=== PATIENT | female | born 1985 | race Caucasian/White ===

== ENCOUNTER → 2018-10-22 | Outpatient (CLI) | payer OTHER ==
--- NOTE | 2018-10-22 12:44 | CT ---
EXAMINATION TYPE: CT chest wo con DATE OF EXAM: 10/22/2018 COMPARISON: None HISTORY: 33-year-old female atypical chest pain TECHNIQUE: Contiguous axial scanning of the chest without IV contrast. Coronal and sagittal reconstru ctions performed. CT DLP: 535 mGycm Automated exposure control for dose reduction was used. FINDINGS: There is a large 2.9 x 3.0 cm hypodense nodule of the thyroid isthmus which warrants further ultrasou nd evaluation. Heart normal size without pericardial effusion. Aorta normal caliber with conventional arch vessel branching anatomy. No thoracic lymphadenopathy allowing for noncontrast technique. No consolidation or pleural effusion. Tiny hiatal hernia. Visualized upper abdomen shows no gross abnormality. Bones: Mild multilevel degenerative disc disease especially in the mid thoracic spine. IMPRESSION: 1. LARGE 3.0 CM NODULE OF THE THYROID ISTHMUS WHICH WARRANTS FURTHER ULTRASOUND EVALUATION AND POSSIB LE FNA DEPENDING ON ULTRASOUND FINDINGS. 2. TINY HIATAL HERNIA. 3. NO ACUTE PULMONARY PROCESS.
== END | disposition home or self-care (01) ==
LOC: MERGE 11:20 → RADCTMAIN 11:25
PROVIDERS: ATTEND Internal Medicine
DX: K44.9 Diaphragmatic hernia without obstruction or gangrene (principal); J45.909 Unspecified asthma, uncomplicated; R07.89 Other chest pain
CPT/HCPCS: 71250

== ENCOUNTER → 2018-11-05 | Outpatient (CLI) | payer OTHER ==
--- NOTE | 2018-11-06 07:23 | US ---
EXAMINATION TYPE: US thyroid st tissue head/neck DATE OF EXAM: 11/05/2018 COMPARISON: CT 2019 CLINICAL HISTORY: E04.1 Thyroid nodule,E03.9 Hypothyroidism. Thyroid nodule seen on CT, no previous u ltrasound, used to be on thyroid meds- not anymore GLAND SIZE: Right Lobe: 4.1 x 1.6 x 1.8 cm Overall Parenchyma: homogenous Left Lobe: 3.6 x 1.6 x 1.4 cm Overall Parenchyma: homogeneous Isthmus Thickness: 0.7 cm NODULES RIGHT: # of nodules measured on right: 0 LEFT: # of nodules measured on left: 1 1. 1.3 X 1.3 x 0.9 cm hypoechoic nodule at the lower medial/isthmus pole with well-defined margins. This nodule is wider than tall and shows intranodular vascularity. Prior size: no previous ISTHMUS: # of nodules measured in the isthmus: 1 1. 3.4 X 3.2 x 2.3 cm hypoechoic heterogenous nodule at the lower pole with well-defined margins. This nodule is wider than tall and shows intranodular vascularity. Prior size: No previous Bilateral neck scanned, no evidence of lymphadenopathy. IMPRESSION: 3.4 cm isthmic nodule for which fine-needle aspiration could be considered given the size of the nodu le. Additional solid left thyroid nodule is seen that does not yet meet criteria for fine-needle aspi ration.
== END | disposition home or self-care (01) ==
LOC: RADUSWWP 15:59
PROVIDERS: ATTEND Internal Medicine
DX: E04.2 Nontoxic multinodular goiter (principal); E03.9 Hypothyroidism, unspecified
CPT/HCPCS: 76536

== ENCOUNTER → 2018-12-26 | Outpatient (CLI) | payer OTHER ==
--- NOTE | 2018-12-26 12:49 | CONS ---
CONSULTATION DATE OF SERVICE: 12/26/2018 A 33-year-old lady who has been evaluated in [facility] for symptoms of significant excessive daytime sleepiness. HISTORY OF PRESENT ILLNESS/SLEEP-WAKE EVALUATION: Feel sleepiness since May of 2017 when she delivered her fourth baby. She also had a preeclampsia at that time and also preeclampsia. Presently, her sleep schedule from 10 p.m. to 5 a.m. No problems with falling asleep. No TV in bedroom. She usually sleeps on the side position. According to the family, she does not snore. Sometimes while falling asleep, she started to see dreams right away. She wakes up from sleep 2 times with nocturia. In the morning, she wakes up tired, has difficulties to pay attention. Shafter Sleepiness Scale is 8, but she does not have a chance to take any naps because she is very busy, she has 4 children. If she is able to take naps. She is seeing vivid dreams during naps. No history of sleep paralysis, but as I mentioned above, possible positive history of hypnagogic hallucinations. In the morning, she wakes up tired, has difficulties to pay attention, has problems with irritability. PAST MEDICAL HISTORY: Positive for fibromyalgia, iron deficiency anemia, vitamin D deficiency, hypertension, pre and preeclampsia, thyroid nodules, numbness in her [place] fingers. 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 History of asthma. PAST SURGICAL HISTORY: Adenoidectomy, appendectomy, D and C and ablation of the uterus in 2018. MEDICATIONS: Amlodipine, vitamin D3, ferrous sulfate, magnesium. FAMILY HISTORY: Hypertension father maladjustment findings thyroid problems. REVIEW OF SYSTEMS: Awakenings from sleep, sleepiness during the day, possible hypnagogic hallucinations and vivid dreams during naps. SOCIAL HISTORY: Negative for smoking or using alcohol. PHYSICAL EXAM: lady without distress BP 127/83, HR 78, RR 16, height 5, 4, weight 233.2, body mass index 40.5, temperature 98.3, oxygen saturation at room air 99%. OROPHARYNX: Practically normal position of soft palate, Mallampati 2, but thick tonsils. Some restriction of nasal breathing on the left side. ABDOMEN: Obese, numbness of the fingers and toes. Slight pain while touching thyroid. THYROID: Painful during assessment. Neck Supple, no JVD. Thyroid is not palpable. LUNGS Clear to percussion and to auscultation. Good air exchange. No wheezing or rhonchi. HEART S1, S2 regular. No murmurs, gallops, or rubs. EXTREMITIES No clubbing or cyanosis. PLANNING FEEDER: Awake, alert, and oriented X3. Cranial nerves 2 to 7 intact. There is no fasciculation or atrophy. noted. No focal deficits observed. IMPRESSION: 1. Sleepiness for about 1-1/2 years, started after her last delivery. Possible hypnagogic hallucinations, vivid dreams during naps. Differential diagnosis should include hypersomnia including narcolepsy. 2. Increase size of the tonsils. Differential diagnosis should include obstructive sleep apnea, but patient does not have a history of snoring, although awakenings from sleep several times. 3. Hypertension. 4. Obesity, body mass index 40.5. 5. Thyroid nodules. 6. 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 7. History of fibromyalgia. 8. History of numbness in the fingers and toys. 9. History of preeclampsia including preeclampsia. 10.History of vitamin D deficiency. 11.History of iron deficiency anemia. 12.Status post D and C and uterus ablation in 2018. 13.Status post adenoidectomy. 14.Status post appendectomy. 15.Thyroid nodules. 16.History of asthma. PLAN: 1. Polysomnography for evaluation of patient's breathing during sleep. 2. CPAP/BiPAP titration if sleep study confirms obstructive sleep apnea-hypopnea syndrome. 3. Preferable position during sleep on the side. 4. No driving if patient feels any sleepiness. 5. Multiple sleep latency test for objective evaluation of excessive daytime sleepiness. The differential diagnosis of narcolepsy. 6. I will see patient for follow up visit to explain results of testing and following plan. Than you very much for referring this patient for consultation. Sincerely, Fito Bradshaw MD, PhD, FAASM Diplomat of [employer] [facility] [place] MMODL / FRANK: [phone] /
== END | disposition home or self-care (01) ==
LOC: SLEEP 10:04
PROVIDERS: ATTEND Internal Medicine
DX: G47.10 Hypersomnia, unspecified (principal); I10 Essential (primary) hypertension; E04.2 Nontoxic multinodular goiter; E66.9 Obesity, unspecified; Z68.41 Body mass index [BMI] 40.0-44.9, adult; Z86.69 Personal history of other diseases of the nervous system and sense organs; Z87.39 Personal history of other diseases of the musculoskeletal system and connective tissue; Z86.39 Personal history of other endocrine, nutritional and metabolic disease; Z86.2 Personal history of diseases of the blood and blood-forming organs and certain disorders involving the immune mechanism; Z87.09 Personal history of other diseases of the respiratory system; Z90.49 Acquired absence of other specified parts of digestive tract; Z90.09 Acquired absence of other part of head and neck; Z98.890 Other specified postprocedural states
CPT/HCPCS: 99211

== ENCOUNTER → 2019-04-03 | Outpatient (CLI) | payer OTHER ==
[2019-04-03 15:59] LABS: Folate, Serum 23.1 ng/mL
[2019-04-03 18:03] LABS: C Reactive Protein 1.3 mg/dL (0.0-0.8)
== END | disposition home or self-care (01) ==
LOC: LABWHC1 08:25
PROVIDERS: ATTEND Family Medicine
DX: R53.83 Other fatigue (principal); R60.9 Edema, unspecified
CPT/HCPCS: 36415; 82533; 82607; 82746; 84425; 86140; 86431

== ENCOUNTER → 2019-07-03 | Outpatient (CLI) | payer OTHER ==
--- NOTE | 2019-07-03 10:16 | FL ---
EXAMINATION TYPE: FL barium swallow DATE OF EXAM: 07/03/2019 CLINICAL HISTORY: History of thyroid disease with dysphasia. Feeling of something in throat for 6 mon ths per patient. Choking and hoarseness. TECHNIQUE: A double contrast esophagram is performed utilizing air and barium. A total of 31 second s of fluoroscopic time was utilized during procedure. 58 spot images are saved. COMPARISON: None FINDINGS: The esophagus shows satisfactory motility and emptying into the stomach. Small size sliding -type hiatal hernia is seen best towards end of study. No diverticulum or stricture. No significant g astroesophageal reflux was seen during real time performance of this study. IMPRESSION: Small sliding-type hiatal hernia. No obstructing mass or stricture noted.
== END | disposition home or self-care (01) ==
LOC: RADUSWWP 09:03
PROVIDERS: ATTEND Otolaryngology Plastic Surgery within the Head & Neck
DX: K44.9 Diaphragmatic hernia without obstruction or gangrene (principal)
CPT/HCPCS: 74220

== ENCOUNTER → 2019-07-05 | Outpatient (CLI) | payer OTHER ==
--- NOTE | 2019-07-05 09:46 | CT ---
EXAMINATION TYPE: CT soft tissue neck w con DATE OF EXAM: 07/05/2019 COMPARISON: None HISTORY: Dysphagia, Multinodular goiter CT DLP: 634 mGycm CONTRAST: CT scan of the neck is performed with IV Contrast, patient injected with 100 ml mL of Isovue 300. Contrast enhanced CT of the neck was performed from the skull base through the lung apices. AIRWAY: The supraglottic, glottic, and subglottic portions of the airway appear patent and free of mass. SALIVARY GLANDS: The submandibular and parotid glands are free of mass or inflammatory process. THYROID GLAND: The right thyroid lobe measures 4 cm in craniocaudal dimension while on the left measu res 4.6 cm. Arising from the thyroid isthmus is a large predominantly solid nodule measuring 3.6 x 3 .3 x 2.5 cm. Small subcentimeter nodule upper pole left thyroid lobe. No additional nodules seen with certainty. LYMPH NODES: No adenopathy seen greater than 1cm. LUNG APICES: No nodule or mass is seen. OTHER: Vascular structures are patent. No significant degenerative change of the cervical spine. N o abscess seen. IMPRESSION: Solid nonspecific nodule arising from the thyroid isthmus. Otherwise unremarkable study.
== END | disposition home or self-care (01) ==
LOC: RADCTMAIN 06:57
PROVIDERS: ATTEND Otolaryngology Plastic Surgery within the Head & Neck
DX: E04.1 Nontoxic single thyroid nodule (principal)
CPT/HCPCS: 70491; Q9967

== ENCOUNTER → 2019-10-31 | Outpatient (CLI) | payer OTHER ==
--- NOTE | 2019-11-01 06:41 | US ---
EXAMINATION TYPE: US thyroid st tissue head/neck DATE OF EXAM: 10/31/2019 COMPARISON: Prior thyroid ultrasound November 05, 2018 CLINICAL HISTORY: C73 Thyroid cancer, Z90.09History of partial thyroidectomy. History of thyroid canc er, left thyroidectomy 09/15 GLAND SIZE: Right Lobe: 3.9 x 1.9 x 1.5 cm Overall Parenchyma: homogenous Left Lobe: Surgically absent Isthmus Thickness: Surgically absent NODULES RIGHT: # of nodules measured on right: 0 LEFT: surgically absent ISTHMUS: surgically absent Bilateral neck scanned, no evidence of lymphadenopathy. Post surgical changes noted Stable somewhat small homogeneous right thyroid lobe or remnant. No suspicious new nodules. No suspic ious recurrent left-sided tissue. No suspicious adenopathy on images saved. IMPRESSION: As above. No significant interval change from prior.
== END | disposition home or self-care (01) ==
LOC: RADUSWWP 15:55
PROVIDERS: ATTEND Pediatrics Adolescent Medicine
DX: C73 Malignant neoplasm of thyroid gland (principal); Z90.09 Acquired absence of other part of head and neck
CPT/HCPCS: 76536

== ENCOUNTER → 2020-02-26 | Outpatient (CLI) | payer OTHER | END | disposition home or self-care (01) | LOC: LABWHC1 08:35 | PROVIDERS: ATTEND Internal Medicine | DX: E89.0 Postprocedural hypothyroidism (principal) | CPT/HCPCS: 36415; 84439; 84443 ==

== ENCOUNTER → 2020-08-04 | Outpatient (CLI) | payer OTHER ==
[2020-08-05 04:39] LABS: T4, Free (Free Thyroxine) 1.2 ng/dL (0.80-1.80)
== END | disposition home or self-care (01) ==
LOC: LABWHC1 15:13
PROVIDERS: ATTEND Internal Medicine
DX: E89.0 Postprocedural hypothyroidism (principal)
CPT/HCPCS: 36415; 84439; 84443

== ENCOUNTER → 2020-08-23 | Outpatient (CLI) | payer OTHER ==
[2020-08-23 11:22] LABS: Basophils % (A) 0 %; Eosinophils % (A) 0 %; HCT 43.1 % (34.0-46.0); HGB 13.8 gm/dL (11.4-16.0); Lymphocytes % (A) 15 %; MCH 26.7 pg (25.0-35.0); MCHC 32.1 g/dL (31.0-37.0); MCV 83.1 fL (80.0-100.0); Mean Platelet Volume 8.2; Monocytes # (A) 0.5 k/uL (0-1.0); Monocytes % (A) 4 %; Neutrophils # (A) 10.5 k/uL (1.3-7.7); Neutrophils % (A) 80 %; Platelet Count 247 k/uL (150-450); RBC 5.19 m/uL (3.80-5.40); RDW 13.3 % (11.5-15.5); WBC 13.3 k/uL (3.8-10.6)
[2020-08-23 16:49] LABS: African American GFR (CKD) 135.9 (60.0-200.0); Albumin/Globulin Ratio 1.92 (1.60-3.17); Anion Gap 9.5 mmol/L (4.00-12.00); BUN/Creat Ratio 16.67 Ratio (12.00-20.00); C Reactive Protein 0.7 mg/dL (0.0-0.8); Calcium 9.6 mg/dL (8.7-10.3); Carbon Dioxide 25.5 mmol/L (21.6-31.8); Globulin 2.6 g/dL (1.6-3.3); Non-African American GFR(CKD) 117.3 (60.0-200.0); Potassium 4.2 mmol/L (3.5-5.5); Total Bilirubin 0.5 mg/dL (0.3-1.2); Total Protein 7.6 g/dL (6.2-8.2)
== END | disposition home or self-care (01) ==
LOC: LABWHC1 10:33
PROVIDERS: ATTEND Family Medicine
DX: E03.9 Hypothyroidism, unspecified (principal); R10.13 Epigastric pain; R10.12 Left upper quadrant pain
CPT/HCPCS: 36415; 80053; 84443; 85025; 86140

== ENCOUNTER → 2020-10-15 | Outpatient (CLI) | payer OTHER ==
[2020-10-16 00:37] LABS: Alpha Fetoprotein, Tumor Mkr <2.5 ng/mL (0.0-7.9)
[2020-10-16 16:32] LABS: Hepatitis B Surface Antigen Non-Reactive (Non-Reactive); Hepatitis C IgG Antibody Non-Reactive (Non-Reactive)
== END | disposition home or self-care (01) ==
LOC: LABWHC1 15:12
PROVIDERS: ATTEND Nurse Practitioner
DX: R93.2 Abnormal findings on diagnostic imaging of liver and biliary tract (principal)
CPT/HCPCS: 36415; 82105; 86803; 87340

== ENCOUNTER → 2020-11-01 | Outpatient (CLI) | payer OTHER ==
--- NOTE | 2020-11-01 11:26 | MR ---
EXAMINATION TYPE: MR liver wo/w con DATE OF EXAM: 11/01/2020 COMPARISON: Outside CT August 24, 2020 and older study here June 27, 2017. HISTORY: Abdominal pain, abnormal findings on recent CT. CONTRAST: Standard multiplanar, multisequence MRI departmental protocol utilizing 10 mL intravenous Gadavist ga dolinium contrast. Images performed of the abdomen focusing on the liver. FINDINGS: Liver: Liver remains normal in size. There is capsular retraction in the inferior right hepatic lobe redemonstrated corresponding to slight T1 hypointense and slight T2 hyperintense 2.5 cm lesion jimenez l image 25.Dynamic postcontrast imaging shows lesion to have initial no or delayed enhancement remain ing rest of liver, there is eventual heterogeneous peripheral increased enhancement relative to remai nder of the liver with central rounded area of nonenhancement. Lesion likely was present June 27, 2017 CT where was isodense relative to remainder of liver as this was a later injection than outside CT. Punctate calcification noted on CT. Remainder of the liver shows no concerning additional solid o r cystic mass. No surrounding ascites. Gallbladder remains unremarkable. Other: Lung bases are clear. The spleen and both adrenal glands along with pancreas remain within nor mal limits. No concerning renal mass or hydronephrosis. No suspicious small or large bowel dilatation . Visualized osseous structures are intact. IMPRESSION: There is 2.5 cm lesion confirmed in the inferior inferior aspect posterior segment right hepatic lobe. Subtle adjacent capsular retraction redemonstrated. Lesion likely stable in size from N 2016 study. There is progressive peripheral enhancement on more delayed phase images. I schwarz spect a benign atypical hemangioma as most likely etiology. Imaging characteristics not consistent wi th FNH or hepatic adenoma. Advise repeat liver protocol MRI in 1-2 years time to document stability a nd reassess.
== END | disposition home or self-care (01) ==
LOC: RADMRIMAIN 09:11
PROVIDERS: ATTEND Internal Medicine Gastroenterology
DX: K76.89 Other specified diseases of liver (principal); R93.2 Abnormal findings on diagnostic imaging of liver and biliary tract
CPT/HCPCS: 74183; A9585

== ENCOUNTER 2021-03-17 02:09 | Emergency (ER) | payer OTHER ==
[2021-03-17 02:25] VITALS: RESP 18; TEMP 99.9
[2021-03-17] MEDS ORDERED: MORPHINE SULFATE 4 MG/ML SYRINGE IV STA (02:29)
[2021-03-17] MEDS ORDERED: SODIUM CHLORIDE 0.9% 1,000 ML IV STA ×2 (02:29)
--- NOTE | 2021-03-17 02:30 | ED ---
Abdominal Pain HPI - General Chief Complaint: Abdominal Pain Stated Complaint: Abdominal pain Time Seen by Provider: 03/17/21 02:13 Source: patient, RN notes reviewed, old records reviewed Mode of arrival: ambulatory Limitations: no limitations - History of Present Illness Initial Comments: This is a 36-year-old female presents today for evaluation. Patient presents with concerns. Concerns for abdominal pain that started this afternoon as well as just overall feelings of rundown chills sweats. She has no significant travel history, she does have severe history of possible liver cancer or other cancer. Patient is unsure of the extent of those issues. Patient states one mass that she has maybe had her liver and that is what she is concerned about today. She has no nausea no vomiting no fevers, no other complaints MD Complaint: abdominal pain -: hour(s), year(s) Location: RUQ Radiation: RUQ Migration to: no migration, RUQ Severity: moderate Severity scale (1-10): 5 Quality: cramping, stabbing Consistency: intermittent Improves With: nothing Worsens With: nothing Associated Symptoms: nausea Treatments Prior to Arrival: NSAIDs - Related Data Home Medications Medication Instructions Recorded Confirmed Labetalol [Trandate] 100 mg PO BID 10/10/17 01/29/18 Cholecalciferol (Vitamin D3) 2,000 unit PO QAM 01/11/18 01/29/18 [Vitamin D3] hydroCHLOROthiazide 12.5 tab-cap PO DAILY 01/11/18 01/29/18 Budesonide [Pulmicort Flexhaler] 2 puff INHALATION DAILY 01/23/18 01/29/18 Ferrous Sulfate [Iron] 325 mg PO DAILY 01/23/18 01/29/18 Allergies Allergy/AdvReac Type Severity Reaction Status Date / Time latex Allergy Severe Dyspnea Verified 03/17/21 02:25 nitrofurantoin Allergy Rash/Hives Verified 03/17/21 02:25 [From Macrobid] nitrofurantoin Allergy Rash/Hives Verified 03/17/21 02:25 macrocrystalline [From Macrobid] propoxyphene Allergy Rash/Hives Verified 03/17/21 02:25 [From Darvocet-N] Review of Systems ROS Statement: Those systems with pertinent positive or pertinent negative responses have been documented in the HPI. ROS Other: All systems not noted in ROS Statement are negative. Past Medical History Past Medical History: Asthma, GERD/Reflux, Hypertension, Thyroid Disorder Additional Past Medical History / Comment(s): STATES HAD POST PRE-ECLAMPSIA, PAST HX ASTHMA AND THYROID underactive , STATES HAVING POSSIBLE GALLBLADDER AND LIVER ISSUES. HAS RT FRONTAL LOBE LESION, FREQUENT HEADACHES. Pt. states left eye vision loss after uncontrolled blood pressure caused retina to tear, Polycystic Ovarian Syndrome History of Any Multi-Drug Resistant Organisms: None Reported Past Surgical History: Adenoidectomy, Appendectomy, Uterine Ablation Additional Past Surgical History / Comment(s): LAPROSCOPIC SX Past Anesthesia/Blood Transfusion Reactions: Previous Problems w/ Anesthesia Additional Past Anesthesia/Blood Transfusion Reaction / Comment(s): N/V after 09/2017 uterine ablation. No blood transfusion to date Past Psychological History: No Psychological Hx Reported Smoking Status: Never smoker Past Alcohol Use History: Rare Past Drug Use History: None Reported - Past Family History Mother Family Medical History: Cancer Additional Family Medical History / Comment(s): SKIN CA General Exam Limitations: no limitations General appearance: alert, in no apparent distress Head exam: Present: atraumatic, normocephalic, normal inspection Eye exam: Present: normal appearance, PERRL, EOMI. Absent: scleral icterus, conjunctival injection, periorbital swelling ENT exam: Present: normal exam, mucous membranes moist Neck exam: Present: normal inspection. Absent: tenderness, meningismus, lymphadenopathy Respiratory exam: Present: normal lung sounds bilaterally. Absent: respiratory distress, wheezes, rales, rhonchi, stridor Cardiovascular Exam: Present: regular rate, normal rhythm, normal heart sounds. Absent: systolic murmur, diastolic murmur, rubs, gallop, clicks GI/Abdominal exam: Present: soft, normal bowel sounds. Absent: distended, tenderness, guarding, rebound, rigid Extremities exam: Present: normal inspection, full ROM, normal capillary refill. Absent: tenderness, pedal edema, joint swelling, calf tenderness Back exam: Present: normal inspection Neurological exam: Present: alert, oriented X3, CN II-XII intact Psychiatric exam: Present: normal affect, normal mood Skin exam: Present: warm, dry, intact, normal color. Absent: rash Course Vital Signs 03/17/21 03/17/21 03/17/21 02:24 02:25 04:30 Temperature 99.9 F H Pulse Rate 89 88 70 Respiratory 18 18 18 Rate Blood Pressure 135/87 120/80 127/77 O2 Sat by Pulse 96 98 98 Oximetry - Reevaluation(s) Reevaluation #1: 03/17/21 05:00 Medical record is reviewed Reevaluation #2: 03/17/21 05:00 Patient informed results and questions answered Patient is reassured on the benign status of her liver lesion Reevaluation #3: 03/17/21 05:00 patient feels good for discharge home with pain is resolved Medical Decision Making - Medical Decision Making 36 female DF for evaluation of abdominal pain recurrent abdominal pain. Patient is in good spirits and health currently. Patient feels good for discharge home - Lab Data Result diagrams: 03/17/21 02:39 03/17/21 02:39 Lab Results 03/17/21 03/17/21 03/17/21 Range/Units 02:39 02:39 02:39 WBC 5.7 (3.8-10.6) k/uL RBC 4.72 (3.80-5.40) m/uL Hgb 13.4 (11.4-16.0) gm/dL Hct 41.5 (34.0-46.0) % MCV 88.0 (80.0-100.0) fL MCH 28.4 (25.0-35.0) pg MCHC 32.3 (31.0-37.0) g/dL RDW 13.3 (11.5-15.5) % Plt Count 160 (150-450) k/uL MPV 8.5 Neutrophils % 88 % Lymphocytes % 7 % Monocytes % 3 % Eosinophils % 1 % Basophils % 0 % Neutrophils # 5.0 (1.3-7.7) k/uL Lymphocytes # 0.4 L (1.0-4.8) k/uL Monocytes # 0.2 (0-1.0) k/uL Eosinophils # 0.1 (0-0.7) k/uL Basophils # 0.0 (0-0.2) k/uL Sodium 137 (137-145) mmol/L Potassium 4.4 (3.5-5.1) mmol/L Chloride 105 (98-107) mmol/L Carbon Dioxide 24 (22-30) mmol/L Anion Gap 8 mmol/L BUN 9 (7-17) mg/dL Creatinine 0.58 (0.52-1.04) mg/dL Est GFR (CKD-EPI)AfAm >90 (>60 ml/min/1.73 sqM) Est GFR (CKD-EPI)NonAf >90 (>60 ml/min/1.73 sqM) Glucose 129 H (74-99) mg/dL Plasma Lactic Acid Bernard (0.7-2.0) mmol/L Calcium 8.9 (8.4-10.2) mg/dL Total Bilirubin 1.1 (0.2-1.3) mg/dL AST 17 (14-36) U/L ALT 10 (4-34) U/L Alkaline Phosphatase 71 (38-126) U/L C-Reactive Protein (<1.0) mg/dL Total Protein 6.7 (6.3-8.2) g/dL Albumin 4.2 (3.5-5.0) g/dL Amylase 34 (30-110) U/L Lipase 42 (23-300) U/L Urine Color Light Yellow Urine Appearance Clear (Clear) Urine pH 7.5 (5.0-8.0) Ur Specific Gruver 1.007 (1.001-1.035) Urine Protein Negative (Negative) Urine Glucose (UA) Negative (Negative) Urine Ketones Negative (Negative) Urine Blood Negative (Negative) Urine Nitrite Negative (Negative) Urine Bilirubin Negative (Negative) Urine Urobilinogen <2.0 (<2.0) mg/dL Ur Leukocyte Esterase Negative (Negative) 03/17/21 03/17/21 Range/Units 02:39 02:39 WBC (3.8-10.6) k/uL RBC (3.80-5.40) m/uL Hgb (11.4-16.0) gm/dL Hct (34.0-46.0) % MCV (80.0-100.0) fL MCH (25.0-35.0) pg MCHC (31.0-37.0) g/dL RDW (11.5-15.5) % Plt Count (150-450) k/uL MPV Neutrophils % % Lymphocytes % % Monocytes % % Eosinophils % % Basophils % % Neutrophils # (1.3-7.7) k/uL Lymphocytes # (1.0-4.8) k/uL Monocytes # (0-1.0) k/uL Eosinophils # (0-0.7) k/uL Basophils # (0-0.2) k/uL Sodium (137-145) mmol/L Potassium (3.5-5.1) mmol/L Chloride (98-107) mmol/L Carbon Dioxide (22-30) mmol/L Anion Gap mmol/L BUN (7-17) mg/dL Creatinine (0.52-1.04) mg/dL Est GFR (CKD-EPI)AfAm (>60 ml/min/1.73 sqM) Est GFR (CKD-EPI)NonAf (>60 ml/min/1.73 sqM) Glucose (74-99) mg/dL Plasma Lactic Acid Bernard 0.9 (0.7-2.0) mmol/L Calcium (8.4-10.2) mg/dL Total Bilirubin (0.2-1.3) mg/dL AST (14-36) U/L ALT (4-34) U/L Alkaline Phosphatase (38-126) U/L C-Reactive Protein 1.7 H (<1.0) mg/dL Total Protein (6.3-8.2) g/dL Albumin (3.5-5.0) g/dL Amylase (30-110) U/L Lipase (23-300) U/L Urine Color Urine Appearance (Clear) Urine pH (5.0-8.0) Ur Specific Gruver (1.001-1.035) Urine Protein (Negative) Urine Glucose (UA) (Negative) Urine Ketones (Negative) Urine Blood (Negative) Urine Nitrite (Negative) Urine Bilirubin (Negative) Urine Urobilinogen (<2.0) mg/dL Ur Leukocyte Esterase (Negative) - Radiology Data Radiology results: report reviewed (CT head and pelvis is negative for acute disease patient does have a liver hemangioma which appears to be had multiple prior studies same size), image reviewed Disposition Clinical Impression: Abdominal pain, Liver hemangioma Disposition: HOME SELF-CARE Condition: Good Instructions (If sedation given, give patient instructions): Abdominal Pain (ED) Is patient prescribed a controlled substance at d/c from ED?: No Referrals: Jake Heath MD [Primary Care Provider] - 1-2 days
[2021-03-17 03:00] LABS: Basophils % (A) 0 %; Eosinophils # (A) 0.1 k/uL (0-0.7); Eosinophils % (A) 1 %; HCT 41.5 % (34.0-46.0); HGB 13.4 gm/dL (11.4-16.0); Lymphocytes # (A) 0.4 k/uL (1.0-4.8); Lymphocytes % (A) 7 %; MCH 28.4 pg (25.0-35.0); MCHC 32.3 g/dL (31.0-37.0); Mean Platelet Volume 8.5; Monocytes # (A) 0.2 k/uL (0-1.0); Monocytes % (A) 3 %; Neutrophils % (A) 88 %; Platelet Count 160 k/uL (150-450); RBC 4.72 m/uL (3.80-5.40); RDW 13.3 % (11.5-15.5); WBC 5.7 k/uL (3.8-10.6)
[2021-03-17 03:01] LABS: Appearance,Urine Clear (Clear); Bilirubin,Urine Negative (Negative); Blood,Urine Negative (Negative); Color,Urine Light Yellow; Glucose,Urine (UA) Negative (Negative); Ketones,Urine Negative (Negative); Leukocyte Esterase,Urine Negative (Negative); Nitrite,Urine Negative (Negative); PH, Urine 7.5 (5.0-8.0); Protein,Urine Negative (Negative); Specific Gravity,Urine 1.007 (1.001-1.035); Urobilinogen,Urine <2.0 mg/dL (<2.0)
[2021-03-17 03:12] LABS: ALT 10 U/L (4-34); AST 17 U/L (14-36); African American GFR (CKD) >90 (>60 ml/min/1.73 sqM); Albumin 4.2 g/dL (3.5-5.0); Alkaline Phosphatase 71 U/L (38-126); Amylase 34 U/L (30-110); Anion Gap 8 mmol/L; Blood Urea Nitrogen 9 mg/dL (7-17); Calcium 8.9 mg/dL (8.4-10.2); Carbon Dioxide 24 mmol/L (22-30); Chloride 105 mmol/L (98-107); Glucose 129 mg/dL (74-99); Lipase 42 U/L (23-300); Non-African American GFR(CKD) >90 (>60 ml/min/1.73 sqM); Potassium 4.4 mmol/L (3.5-5.1); Sodium 137 mmol/L (137-145); Total Bilirubin 1.1 mg/dL (0.2-1.3); Total Protein 6.7 g/dL (6.3-8.2)
--- NOTE | 2021-03-17 03:50 | CT ---
EXAMINATION TYPE: CT abdomen pelvis w con DATE OF EXAM: 03/17/2021 COMPARISON: 08/24/2020 HISTORY: RUQ pain, hx of known liver mass CT DLP: 1452.1 mGycm Automated exposure control for dose reduction was used. CONTRAST: Performed with IV Contrast, patient injected with 100 mL of Isovue 300. Images obtained from the diaphragm to the floor the pelvis with IV contrast. Lung bases are clear. There is no pleural effusion. Heart size is normal. There is no pericardial eff usion. Spleen is intact. Stomach is intact. Bile ducts are not dilated. There is no pancreatic mass. Gallbla dder appears normal. There is 2 cm hypodense area in the inferior right lobe of the liver with some c alcification that could be a hemangioma. There is no adrenal mass. Kidneys show satisfactory contrast opacification. There is no hydronephrosi s. Delayed images show normal renal excretion. There is no retroperitoneal adenopathy. Bladder disten ds smoothly. Uterus is anteverted. There is no free fluid in the pelvis. There is no pelvic mass. The re is fluid in the large bowel extending to the splenic flexure. There is no mesenteric edema. There is some mildly distended fluid-filled small bowel loops in the lower abdomen. Small bowel measures up to 2.5 cm. The lumbar vertebra have normal alignment. Posterior elements are intact. There is no compression fra cture. The bony pelvis is intact. The hip joints are intact. There is no hip dysplasia. IMPRESSION: Mild small bowel distention with fluid. Large bowel fluid. This could relate to some gastroenteritis. I do not see evidence of a mechanical bowel obstruction. This appears new compared to old exam. No evidence of appendicitis. Low density liver mass not changed compared to old CT scan. Lesion also not significantly different t luna older CT scan of 06/27/2017 and suggests benign disease.
[2021-03-17 04:30] VITALS: BP 127/77
[2021-03-17 06:21] VITALS: PULSE 75
== END 2021-03-17 06:21 | disposition home or self-care (01) ==
LOC: EC 02:09
DX: D18.03 Hemangioma of intra-abdominal structures (principal); I10 Essential (primary) hypertension; J45.909 Unspecified asthma, uncomplicated; K21.9 Gastro-esophageal reflux disease without esophagitis; E07.9 Disorder of thyroid, unspecified
CPT/HCPCS: 36415; 74177; 80053; 81003; 82150; 83605; 83690; 85025; 86140; 96361; 96374; 99284

== ENCOUNTER → 2021-12-31 | Outpatient (CLI) | payer OTHER ==
--- NOTE | 2021-12-31 14:17 | XR ---
Lumbar spine. HISTORY: Bilateral leg pain. COMPARISON: None. TECHNIQUE: 3 views the lumbar spine were obtained. FINDINGS: There is ambiguous presentation lumbar spine. There is a rudimentary disc at the S1/S2 level. The lumbar vertebral segments are normal in height and alignment and there is no fracture or subluxat ion. The disc spaces are well-maintained is no significant degenerative disc disease. The facet joints are intact. SI joints are normal. IMPRESSION: 1. Ambiguous segmentation lumbar spine as described above. For the sake of convention, there is a jacob imentary disc at the S1/S2 level. 2. No significant abnormality seen.
== END | disposition home or self-care (01) ==
LOC: LABWHC1 11:26
PROVIDERS: ATTEND Family Medicine
DX: E66.09 Other obesity due to excess calories (principal); M54.42 Lumbago with sciatica, left side; M54.41 Lumbago with sciatica, right side
CPT/HCPCS: 36415; 72100; 83525

== ENCOUNTER → 2022-12-04 | Outpatient (CLI) | payer OTHER | END | disposition home or self-care (01) | LOC: LABWHC1 08:39 | PROVIDERS: ATTEND Family Medicine | DX: E03.9 Hypothyroidism, unspecified (principal) | CPT/HCPCS: 36415; 84443 ==

== ENCOUNTER → 2022-12-18 | Outpatient (CLI) | payer OTHER ==
[2022-12-18 15:22] LABS: Basophils # (A) 0.05 X 10*3/uL (0.00-0.10); Basophils % (A) 0.8 %; Eosinophils # (A) 0.14 X 10*3/uL (0.04-0.35); Eosinophils % (A) 2.4 %; HCT 40.9 % (37.2-46.3); HGB 12.7 g/dL (12.0-15.0); Immature Grans, Automated 0.3 %; Lymphocytes # (A) 1.54 X 10*3/uL (0.90-5.00); Lymphocytes % (A) 26.1 %; MCH 27.3 pg (27.0-32.0); MCHC 31.1 g/dL (32.0-37.0); MCV 87.8 fL (80.0-97.0); Mean Platelet Volume 11.2 fL (9.5-12.2); Monocytes # (A) 0.21 X 10*3/uL (0.20-1.00); Monocytes % (A) 3.6 %; NRBC Per 100 WBC 0 /100 WBCS (0.0-0.0); Neutrophils # (A) 3.94 X 10*3/uL (1.80-7.70); Neutrophils % (A) 66.8 %; Platelet Count 203 X 10*3/uL (140-440); RBC 4.66 X 10*6/uL (4.10-5.20); RDW 12.3 % (11.5-14.5)
[2022-12-18 15:31] LABS: Anion Gap 11.1 mmol/L (10.00-18.00); Blood Urea Nitrogen 9.5 mg/dL (9.0-27.0); Carbon Dioxide 24.8 mmol/L (20.0-27.5); Potassium 4.6 mmol/L (3.5-5.5)
== END | disposition home or self-care (01) ==
LOC: LABPAT 09:08
PROVIDERS: ATTEND Obstetrics & Gynecology Obstetrics
DX: Z01.812 Encounter for preprocedural laboratory examination (principal); N92.0 Excessive and frequent menstruation with regular cycle; N94.6 Dysmenorrhea, unspecified
CPT/HCPCS: 80051; 84520; 85025; 87086

== ENCOUNTER 2022-12-26 08:11 | Day surgery (SDC) | payer OTHER ==
[2022-12-20 14:08] VITALS: BMI 37.1
--- NOTE | 2022-12-25 17:14 | P.HPOB ---
History of Present Illness H&P Date: 12/25/22 Chief Complaint: Heavy menstrual bleeding, failed and Jayde oblation 37-year-old 5 para 4014 non patient with noted heavy menstrual bleeding s/p endometrial ablation. Patient desires definitive treatment with robotic assist vaginal hysterectomy, bilateral salpingectomy, diagnostic cystoscopy possible open to complete procedure. Menses are regular every 20-30 days lasting 7 days with heavy flow and large clots. Patient had heavy menstrual bleeding noted after her last delivery and underwent NovaSure endometrial ablation in 2018. Patient states her menstrual cycles have been heavy in nature since the ablation was completed. Review of Systems Constitutional: Denies chills, Denies fatigue, Denies fever Ears, nose, mouth and throat: Denies headache Cardiovascular: Reports leg edema Respiratory: Denies dyspnea Gastrointestinal: Denies constipation, Denies diarrhea, Denies nausea, Denies vomiting Genitourinary: Denies Menstruation: Reports as per HPI Past Medical History Past Medical History: Asthma, Cancer, Fibromyalgia, GERD/Reflux, Hypertension, Thyroid Disorder Additional Past Medical History / Comment(s): POST PRE-ECLAMPSIA, HAS RT FRONTAL LOBE LESION, states they are watching it. FREQUENT HEADACHES. Pt. states left eye vision loss after uncontrolled blood pressure caused retina to tear, Polycystic Ovarian Syndrome. States has severe abd. pain. vaginal bleeding. Uterine tumors. History of Any Multi-Drug Resistant Organisms: None Reported Past Surgical History: Adenoidectomy, Appendectomy, Uterine Ablation Additional Past Surgical History / Comment(s): LAPROSCOPIC SX, Partial thyroidectomy Past Anesthesia/Blood Transfusion Reactions: Postoperative Nausea & Vomiting (PONV) Additional Past Anesthesia/Blood Transfusion Reaction / Comment(s): N/V after 09/2017 uterine ablation. No blood transfusion to date Smoking Status: Never smoker - Past Family History Mother Family Medical History: Cancer Additional Family Medical History / Comment(s): SKIN CA Medications and Allergies Home Medications Medication Instructions Recorded Confirmed Type Cholecalciferol (Vitamin D3) 2,000 unit PO QAM 01/11/18 12/20/22 History [Vitamin D3] Budesonide [Pulmicort Flexhaler] 2 puff INHALATION DAILY 01/23/18 12/20/22 History Levothyroxine Sodium [Synthroid] 75 mcg PO MOTUTHFRSA 12/20/22 12/20/22 History Levothyroxine Sodium [Synthroid] 150 mcg PO SUWE 12/20/22 12/20/22 History Allergies Allergy/AdvReac Type Severity Reaction Status Date / Time latex Allergy Severe Dyspnea Verified 12/20/22 13:42 nitrofurantoin Allergy Rash/Hives Verified 12/20/22 13:42 [From Macrobid] nitrofurantoin Allergy Rash/Hives Verified 12/20/22 13:42 macrocrystalline [From Macrobid] propoxyphene Allergy Rash/Hives Verified 12/20/22 13:42 [From Darvocet-N] Exam Osteopathic Statement: *. No significant issues noted on an osteopathic structural exam other than those noted in the History and Physical/Consult. Targeted physical exam is performed at [facility] well-nourished well-developed non female in no acute distress, breathing is noted to nonlabored, heart has regular rate, abdomen is soft and nontender to palpation. External genitalia is normal for age and discharge or tenderness is appreciated. The vaginal mucosa is pink and well rugated the bladder nontender to palpation. Cervix appears healthy. Uterus nontender with normal shape and size the adnexa are without mass. Assessment and Plan (1) Menorrhagia Narrative/Plan: Failed endometrial ablation Status: Acute Code(s): N92.0 - EXCESSIVE AND FREQUENT MENSTRUATION WITH REGULAR CYCLE SNOMED Code(s): 997660304 Plan: 37-year-old patient presents for scheduled robotic assist vaginal hysterotomy, bilateral salpingectomy, diagnostic cystoscopy. Patient is counseled on the risks of surgery including but not limited to infection, bleeding, damage to bladder, bowel, ureteric injury. Patient states understanding of the procedure and denies concerns. Patient wishes to proceed with robotic cyst vaginal hysterotomy, bilateral salpingectomy, diagnostic cystoscopy.
[~2022-12-26 08:11] MED LIST: ACETAMINOPHEN IV (For NPO) 1,000 MG in EMPTY BAG 1 BAG IVPB PRN; HYDROmorphone 0.5 MG/0.5 ML SYRINGE IVP PRN; ONDANSETRON 4 MG/2 ML VIAL IVP ONE; fentaNYL (PF) 50 MCG/ML 2 ML AMP IV PRN
[2022-12-26] MEDS ORDERED: LACTATED RINGERS 1,000 ML IV ONE ×2 (09:16→12:51)
[2022-12-26] MEDS ORDERED: ONDANSETRON 4 MG/2 ML VIAL IVP ONE ×2 (09:25)
[2022-12-26] MEDS ORDERED: DEXAMETHASONE SOD PHOSPHATE 4 MG/ML 1 ML VIAL IVP ONE ×2 (09:25)
[2022-12-26] MEDS ORDERED: ACETAMINOPHEN IV (For NPO) 1,000 MG/100 ML VIAL IVPB ONE (09:36)
[2022-12-26] MEDS ORDERED: SUCCINYLCHOLINE CHLORIDE 200 MG/10 ML VIAL IV ONE (10:10)
[2022-12-26] MEDS ORDERED: MIDAZOLAM 2 MG/2 ML VIAL ONE (10:10)
[2022-12-26] MEDS ORDERED: GLYCOPYRROLATE 0.2 MG/ML 2 ML VIAL ONE (10:10)
[2022-12-26] MEDS ORDERED: fentaNYL (PF) 50 MCG/ML 2 ML AMP ONE (10:10)
[2022-12-26] MEDS ORDERED: NEOSTIGMINE 1 MG/ML 10 ML VIAL ONE (10:10)
[2022-12-26] MEDS ORDERED: HYDROmorphone (PF) 1 MG/ML ONE (10:10)
[2022-12-26] MEDS ORDERED: PROPOFOL 10 MG/ML 20 ML VIAL IV ONE (10:10)
[2022-12-26] MEDS ORDERED: LIDOCAINE 2% INJ 20 MG/ML (2 ML VIAL) ONE (10:10)
[2022-12-26] MEDS ORDERED: ROCURONIUM 10 MG/ML (5 ML VIAL) IV ONE (10:10)
[2022-12-26] MEDS ORDERED: BUPIVACAINE (PF) 0.25% 30 ML VIAL SQ ONE ×2 (11:03→12:31)
[2022-12-26] MEDS ORDERED: BACITRACIN OINT 1 EACH PACKET TOPICAL ONE (12:38)
[2022-12-26] MEDS ORDERED: SIMETHICONE 80 MG CHEWABLE PO PRN (12:52)
[2022-12-26] MEDS ORDERED: Acetaminophen-Codeine 300-30mg TAB PO PRN ×2 (12:52)
[2022-12-26] MEDS ORDERED: ONDANSETRON 4 MG/2 ML VIAL IVP PRN (12:52)
--- NOTE | 2022-12-26 13:03 | P.OP ---
Date of Procedure: 12/26/22 Preoperative Diagnosis: Heavy menstrual bleeding, dysmenorrhea, failed endometrial ablation Postoperative Diagnosis: Same plus uterine fibroids Procedure(s) Performed: Robotic cyst vaginal hysterectomy with bilateral salpingectomy, diagnostic cystoscopy Anesthesia: JAIMIEA Surgeon: Karla Milan Gis Web Developer #1: Krysten Austin Estimated Blood Loss (ml): 150 IV fluids (ml): 800 Urine output (ml): 650 Pathology: other (Uterus cervix bilateral fallopian tubes) Condition: stable Disposition: PACU Indications for Procedure: 37-year-old female status post endometrial ablation that presents with complaints of continued heavy menstrual bleeding. Patient wishes definitive treatment with hysterectomy. Patient is counseled on risks and benefits, she states understanding and wishes to proceed. Operative Findings: Grossly enlarged uterus with suspected posterior uterine fibroids bilateral ovaries appeared normal in nature Description of Procedure: Patient was taken back to the operative suite where general anesthesia was obtained without difficulty by the anesthesia department. She was prepped and draped in the normal sterile fashion in the dorsal lithotomy position. A Rangel catheter was placed under sterile technique. A weighted speculum was placed in the posterior vaginal vault the anterior lip the cervix is visualized and grasped with a single-tooth tenaculum. The endocervical canal was then serially dilated and a V care uterine flares advanced into the uterus as a means to miniplate uterus during the procedure. All consents were then removed from the patient's vaginal vault and attention was turned the patient's abdomen. Partially 2 finger breaths above the umbilicus a small skin incision is made. Through this incision a Veress needles placed, once appears needles deemed to be in the appropriate position with a drop of CO2 pressure with insufflation of CO2 gas CO2 insufflation was allowed to occur. Approximately 3 L of gas or used to obtain pneumoperitoneum. At this time the incision was extended to 8 mm and a trocar and sleeve with the laparoscope in place was placed through the skin incision toward the pneumoperitoneum. The above-noted findings were visualized. Additional port sites are then placed at 10 cm lateral and 37 m inferior to midline port these are 8 mm ports and placed under direct visualization. In the left upper quadrant a 12 mm trocar and sleeve is placed under direct visualization. At this time the da Pramod robot was docked in usual fashion the operative arms are now placed. In the right operative arm the vessel sealer was placed in the left operative arm the bipolar [place] is placed. Attention was then turned the patient's left mesosalpinx the fallopian tube was elevated and mesosalpinx was coagulated and transected with the vessel sealer this continued toward the uterine ovarian ligament which was coagulated and transected. Hemostasis with a slight amount of oozing was appreciated. This was then repeated on the opposite side the right fallopian tube was elevated and the mesosalpinx was coagulated with the vessel sealer and transected. The uterine ovarian ligament was coagulated and transected with hemostasis appreciated. At this time the round ligament was coagulated distally and proximal plane divided. On the left followed by the right. Hemostasis was noted. At this time the bladder flap was then created using the hook which had been replaced with the vessel sealer. The bladder was then dissected with a Ray-Alia far away from the operating field. At this time the monopolar scissors was placed in the right operative arm and the left operative arm the bipolar forceps is placed. The ascending branch of the uterine artery from the left was visualized coagulated distally and proximally and divided. On inspection of the right lower cervix the ascending branch the uterine artery was visualized coagulated and transected. Hemostasis was noted. At this time the only remaining attachment was a vaginal attachment therefore colpotomy incision was made in a circumferential fashion. The uterus and bilateral fallopian tubes were delivered through the vaginal opening. The pelvis then copiously irrigated and any points of bleeding were made hemostatic with cautery. The vaginal cuff was then closed with 0 Vicryl in a [id number] fashion 5. The pelvis was then once again copiously irrigated and hemostasis was noted. A small amount of bleeding was in was noted on peritoneal edges therefore FloSeal was placed along the vaginal cuff and the ovaries bilaterally. All instrument were then removed the patient's abdomen at this time and the da Pramod was undocked in the usual fashion. Attention was then turned to the patient's Rangel catheter which was draining clear yellow urine and was removed without difficulty. A cystoscopy was performed. This was placed through the urethra and toward the bladder bladder bubbles appreciated bladder mucosa was noted to be intact. Both ureteral orifices spilling clear yellow urine. The cystoscope was removed and the Rangel catheter was replaced. On inspection the patient's vaginal vault to vaginal lacerations were appreciated these were repaired with 3-0 Rapide in a running locked fashion. Hemostasis was appreciated afterwards. Vaginal packing was then placed, half-inch iodoform with bacitracin ointment Patient tolerated procedure well, HER noted correct 2 at the end of the procedure. Patient was taken the recovery room awake in stable condition.
[2022-12-26] MEDS ORDERED: IBUPROFEN IV 800 MG in SODIUM CHLORIDE 0.9% 250 ML IV ONE (14:30)
[2022-12-26] MEDS ORDERED: LEVOTHYROXINE 75 MCG TAB PO SCH (14:30)
[2022-12-26] MEDS: FLUTICASONE 110 MCG INHALER INHALATION SCH ×2 (15:06→20:14)
--- NOTE | 2022-12-26 17:55 | P.PN ---
Progress Note - Text Progress Note Date: 12/26/22 called to see and evaluate patient. She is s/p RAVH b/l salpingectomy, this am. Procedure was completed without difficulty she has been complaining of eye discomfort, she does struggle with dry eye and has drops, and gel for this condition. on exam she is able to open her eyes with some difficulty and the sclera is noted to be white without redness appreciated. no external swelling or erythema is appreciated. A, postop day 0 RAVH b/l salpingectomy eye pain P, will give IV benadryl, and have her start her eye gel that she uses nightly. I do believe she may be having pain due to dry eye
[2022-12-26] MEDS ORDERED: diphenhydrAMINE 50 MG/ML 1 ML VIAL IVP PRN (18:12)
[2022-12-26] MEDS: LACTATED RINGERS 1,000 ML IV SCH (18:14)
[2022-12-26] MEDS: SENNOSIDES-DOCUSATE SODIUM 1 EACH TAB PO SCH (20:14)
[2022-12-26] MEDS ORDERED: IBUPROFEN IV 800 MG in SODIUM CHLORIDE 0.9% 250 ML IV PRN (21:00)
[2022-12-27] MEDS: IBUPROFEN 600 MG TAB PO PRN ×2 (05:21→12:21)
[2022-12-27] MEDS ORDERED: LEVOTHYROXINE 75 MCG TAB PO SCH (06:30)
[2022-12-27] MEDS: LACTATED RINGERS 1,000 ML IV SCH (06:40)
[2022-12-27 07:50] LABS: Basophils % (A) 0 %; Eosinophils % (A) 0 %; HCT 36.3 % (34.0-46.0); HGB 11.9 gm/dL (11.4-16.0); Lymphocytes # (A) 0.8 k/uL (1.0-4.8); Lymphocytes % (A) 6 %; MCH 27.6 pg (25.0-35.0); MCHC 32.8 g/dL (31.0-37.0); MCV 84.2 fL (80.0-100.0); Mean Platelet Volume 8.2; Monocytes # (A) 0.4 k/uL (0-1.0); Monocytes % (A) 3 %; Neutrophils # (A) 11.9 k/uL (1.3-7.7); Neutrophils % (A) 90 %; Platelet Count 197 k/uL (150-450); RBC 4.32 m/uL (3.80-5.40); WBC 13.3 k/uL (3.8-10.6)
[2022-12-27 07:55] VITALS: BP 142/68; PULSE 97; RESP 16; TEMP 98.2
[2022-12-27] MEDS: SENNOSIDES-DOCUSATE SODIUM 1 EACH TAB PO SCH (08:18)
[2022-12-27] MEDS: FLUTICASONE 110 MCG INHALER INHALATION SCH (08:29)
[2022-12-27] MEDS ORDERED: ACETAMINOPHEN TAB 325 MG TAB PO PRN (12:55)
--- NOTE | 2022-12-27 13:09 | P.DS ---
Providers Date of admission: 12/26/2022 Expected date of discharge: 12/27/22 Attending physician: Karla Milan Primary care physician: Jake Montielt - Discharge Diagnosis(es) (1) Menorrhagia Current Visit: No Status: Acute (2) S/P hysterectomy Current Visit: Yes Status: Acute (3) Eye abnormalities Current Visit: Yes Status: Acute Hospital Course: 37 yo female that presented yesterday for RAVH, b/l salpingectomy, DC for HMB, failed EA. she has noted heavymenstrual bleeding despite EA. she is donne with childbearing and desires definitive treatment with hysterectomy. For full details please see the dictated history and physical. Patient was taken to the OR for scheduled RAVH/ b.l salpingectomy and DC. Procedure was completed without difficulty, for full details please see the dictated history and physical. she has done well well post operatively with the exception of eye pain which began when she was brought to the floor. she has noted discomfort with waking from anesthesia. she describes it as a burning and pain sensation. she does struggle with dry eye and uses am eye gel nightly. she has tried the gel with minimal relief of her sx. she was able to ambulate to the bathroom without as sistance and eat her breakfast. she denies surgical pain, she is the most upset and concerned with the eye discomfort. she is urged to call her [employer] professional [employer] for an appointment. she states she has an appointment today at 4 pm. I am concerned about a corneal abrasion given her discomfort. she is ambulating and voiding without difficulty. she states her pain is well controlled. she denies n/v and is tolerating a regular diet. Patient Condition at Discharge: Good Plan - Discharge Summary Discharge Rx Participant: Yes New Discharge Prescriptions: No Action Cholecalciferol (Vitamin D3) [Vitamin D3] 2,000 unit PO QAM Budesonide [Pulmicort Flexhaler] 2 puff INHALATION DAILY Levothyroxine Sodium [Synthroid] 150 mcg PO SUWE Levothyroxine Sodium [Synthroid] 75 mcg PO MOTUTHFRSA Discharge Medication List Cholecalciferol (Vitamin D3) [Vitamin D3] 2,000 unit PO QAM 01/11/18 [History] Budesonide [Pulmicort Flexhaler] 2 puff INHALATION DAILY 05/30/18 [History] Levothyroxine Sodium [Synthroid] 75 mcg PO MOTUTHFRSA 12/20/22 [History] Levothyroxine Sodium [Synthroid] 150 mcg PO SUWE 12/20/22 [History] Follow up Appointment(s)/Referral(s): Karla Milan DO [Doctor of Osteopathic Medicine] - 2 Weeks Patient Instructions/Handouts: Laparoscopic Hysterectomy (GEN), Laparoscopic Hysterectomy (DC) Activity/Diet/Wound Care/Special Instructions: no tub baths or intercourse until restrictions are released by me. she is to call and make a routine post op appointment at 2 weeks. she is counseled on bleeding precautions. she is to see her [employer] professional [employer] today as scheduled for opinion on her continued post op eye pain. OTC ibuprofen 600mg q 6 hours as needed for pain. Discharge Disposition: HOME SELF-CARE
== END 2022-12-27 13:15 | disposition home or self-care (01) ==
LOC: OR 08:11 → 4FBP 12:45 → OR 12-27 13:15
PROVIDERS: ATTEND Obstetrics & Gynecology Obstetrics
DX: N80.03 Adenomyosis of the uterus (principal); N83.8 Other noninflammatory disorders of ovary, fallopian tube and broad ligament; Z98.890 Other specified postprocedural states; J45.909 Unspecified asthma, uncomplicated; M79.7 Fibromyalgia; I10 Essential (primary) hypertension; K21.9 Gastro-esophageal reflux disease without esophagitis; E07.9 Disorder of thyroid, unspecified; Z87.59 Personal history of other complications of pregnancy, childbirth and the puerperium; E28.2 Polycystic ovarian syndrome; Z90.49 Acquired absence of other specified parts of digestive tract; Z79.51 Long term (current) use of inhaled steroids; Z79.899 Other long term (current) drug therapy; Z79.890 Hormone replacement therapy; Z91.040 Latex allergy status; Z88.1 Allergy status to other antibiotic agents
CPT/HCPCS: 58554; 81025; 86900; 86901; 85025; 86850; 88307; C1762; J1200; J1100; J0690; J2405; J0131; J1741

== ENCOUNTER → 2023-07-02 | Outpatient (CLI) | payer OTHER | END | disposition home or self-care (01) | LOC: LABWHC1 08:59 | PROVIDERS: ATTEND Internal Medicine Gastroenterology | DX: K52.9 Noninfective gastroenteritis and colitis, unspecified (principal) | CPT/HCPCS: 36415; 82784; 83516 ==

== ENCOUNTER → 2023-07-31 | Outpatient (CLI) | payer OTHER ==
--- NOTE | 2023-08-01 12:20 | MR ---
EXAMINATION TYPE: MR liver wo/w con DATE OF EXAM: 07/31/2023 7:26 PM CLINICAL INDICATION:Female, 38 years old with history of K76.9 liver disease; PHH, Upper right side p ain, Evaluate lesions on liver, Hx Liver biopsy 2020, Hx Thyroid cancer Jul 2019 COMPARISON: MRI 321, CT 03/17/2021. CT 06/27/2017. TECHNIQUE: Multiplanar multi-sequence imaging was performed without contrast. Post contrast imaging was performed. Post IV contrast subtraction images were also submitted for review. IV Contrast: 10.5 cc Gadavist FINDINGS: LOWER CHEST: No gross irregularity. ABDOMEN Liver: Mild signal dropout on chemical shift out of phase imaging. The lesion within the right inferior hepatic lobe measures stable at 2.7 x 2.4 cm. There is higher T2 peripheral signal with central lower T2 signal. There is some peripheral enhancement progressively a round the periphery with central nonenhancing which persists on delayed imaging and enhancement patte rn is similar to prior on 11/01/2020. Masses definitively visualized. Gallbladder and Bile ducts: No evidence for ductal dilation, or biliary stricture or evidence of chol edocholithiasis. The gallbladder is decompressed and within normal limits.. Pancreas: No ductal dilation. No evidence for solid mass. There is pancreatic divisum morphology to t he pancreatic duct. Spleen: Normal for size. Adrenal glands: Unremarkable. Kidneys: No evidence for obstructive uropathy. No suspicious renal masses. Stomach and Bowel: No evidence for bowel wall thickening or evidence for obstruction.. Peritoneum: No evidence of pneumoperitoneum or free fluid. Vasculature: No aortic aneurysm. Musculoskeletal: The osseous structures appear intact. Lymph Nodes: No gross evidence for lymphadenopathy. Abdominal wall: Unremarkable. IMPRESSION: 1. Stable to mildly increased in size lesion in the right inferior hepatic lobe, seen dating back to 2016. Correlate with pathology. 2. No new suspicious lesions or evidence for acute right upper quadrant process. 3. Pancreatic divisum.
== END | disposition home or self-care (01) ==
LOC: RADMRIMAIN 18:00
PROVIDERS: ATTEND Internal Medicine Gastroenterology
DX: K76.9 Liver disease, unspecified (principal); Q45.3 Other congenital malformations of pancreas and pancreatic duct; Z85.850 Personal history of malignant neoplasm of thyroid
CPT/HCPCS: 74183; A9585

== ENCOUNTER → 2024-01-29 | Outpatient (CLI) | payer OTHER ==
--- NOTE | 2024-01-29 18:22 | XR ---
EXAMINATION TYPE: XR ankle complete 3 views RT, XR foot complete 3 views RT DATE OF EXAM: 01/29/2024 COMPARISON: NONE HISTORY: 38-year-old female [id number] S93.601A SPRAIN OF OTHER LIGAMENT OF RIGHT. Right ankle and foot pain after stepping in hole FINDINGS: Ankle: Prominent anterior and lateral soft tissue swelling. Slight prominence to the lateral airspace. Talar dome appears intact. Moderate sized plantar heel spur. Foot: Some generalized soft tissue swelling midfoot and hindfoot. Small os peroneum. No acute fracture, sub luxation, dislocation seen. Some degenerative spurring dorsal TMT joints. IMPRESSION: 1. Ankle: Anterior and lateral soft tissue swelling. Slight prominence to the lateral clear space. Co nsider the possibility of a high ankle sprain. Otherwise, no acute osseous abnormality seen. 2. Foot: Some midfoot and hindfoot soft tissue swelling. Moderate-sized plantar heel spur. Dorsal deg enerative spurring mid foot. No acute osseous abnormality seen.
== END | disposition home or self-care (01) ==
LOC: RADXRMAIN 17:21
PROVIDERS: ATTEND Emergency Medicine
DX: M19.071 Primary osteoarthritis, right ankle and foot (principal); M79.89 Other specified soft tissue disorders; S93.491A Sprain of other ligament of right ankle, initial encounter; S93.601A Unspecified sprain of right foot, initial encounter; M77.31 Calcaneal spur, right foot; X58.XXXA Exposure to other specified factors, initial encounter

== ENCOUNTER → 2024-10-25 | Outpatient (CLI) | payer OTHER ==
[2024-10-26 06:43] LABS: HCT 41.1 % (37.2-46.3); HGB 13.3 g/dL (12.0-15.0); MCH 27.9 pg (27.0-32.0); MCHC 32.4 g/dL (32.0-37.0); MCV 86.2 FL (80.0-97.0); Mean Platelet Volume 11.9 FL (9.5-12.2); NRBC Per 100 WBC 0 X 10*3/uL (0.00-0.01); Platelet Count 199 X 10*3/uL (140-440); RBC 4.77 X 10*6/uL (4.10-5.20); RDW 12.3 % (11.5-14.5); WBC 6.03 X 10*3/uL (4.50-10.00)
[2024-10-26 06:44] LABS: Basophils # (A) 0.07 X 10*3/uL (0.00-0.10); Basophils % (A) 1.2 %; Eosinophils # (A) 0.13 X 10*3/uL (0.04-0.35); Eosinophils % (A) 2.2 %; Lymphocytes # (A) 1.53 X 10*3/uL (0.90-5.00); Lymphocytes % (A) 25.4 %; Monocytes # (A) 0.34 X 10*3/uL (0.20-1.00); Monocytes % (A) 5.6 %; Neutrophils # (A) 3.94 X 10*3/uL (1.80-7.70); Neutrophils % (A) 65.3 %
[2024-10-26 07:47] LABS: LDL Cholesterol,Calculated 101.9 mg/dL (0.0-131.0); T4, Free (Free Thyroxine) 1.18 ng/dL (0.80-1.80)
[2024-10-26 08:15] LABS: ALT 12 U/L (8-44); AST 17 U/L (13-35); Albumin/Globulin Ratio 1.74 Ratio (1.60-3.17); Alkaline Phosphatase 70 U/L (41-126); BUN/Creat Ratio 19.33 Ratio (12.00-20.00); Blood Urea Nitrogen 11.6 mg/dL (9.0-27.0); Calcium 8.7 mg/dL (8.7-10.3); Carbon Dioxide 23.1 mmol/L (21.6-31.8); Chloride 105 mmol/L (96-109); Globulin 2.3 g/dL (1.6-3.3); Glucose 98 mg/dL (70-110); Potassium 4.4 mmol/L (3.5-5.5); Sodium 140 mmol/L (135-145); Total Bilirubin 0.7 mg/dL (0.3-1.2); Total Protein 6.3 g/dL (6.2-8.2)
== END | disposition home or self-care (01) ==
LOC: LABWHC1 09:25
PROVIDERS: ATTEND Family Medicine
DX: Z13.220 Encounter for screening for lipoid disorders (principal); C73 Malignant neoplasm of thyroid gland; E03.9 Hypothyroidism, unspecified; R73.9 Hyperglycemia, unspecified
CPT/HCPCS: 36415; 80053; 80061; 83036; 84432; 84439; 84443; 84480; 85025

== ENCOUNTER → 2025-02-24 | Outpatient (CLI) | payer OTHER ==
--- NOTE | 2025-02-24 16:08 | CT ---
EXAMINATION TYPE: CT soft tissue neck w con DATE OF EXAM: 02/24/2025 11:45 AM COMPARISON: 07/05/2019.. CLINICAL INDICATION: Female, 39 years old with history of C73 CANCER OF THYROID GLAND; [facility], had thyro id cancer in 2019 TECHNIQUE: Standard enhanced CT of the neck. Axial sections with coronal and sagittal reformats were obtained. Contrast used:100 mL of Isovue 300 with IV Contrast, (None if empty) Oral contrast used: (None if empty) CT DLP: 742.90 mGycm, Automated exposure control for dose reduction was used. FINDINGS: Brain: Visualized portions are grossly unremarkable. Orbits: Unremarkable Sinuses: Grossly unremarkable. Spaces of the neck: Left thyroid gland is surgically absent multiple surgical clips present. No thyro id bed mass in the left thyroid bed. Musculoskeletal: No acute osseous pathology. Lymph nodes: Multiple nonenlarged lymph nodes are seen along both anterior chains of the neck. Vascular structures: Visualized major arteries are patent without evidence of aneurysm. Thoracic Inlet/airway: Airway is patent. The lung apices are clear. Soft tissues: Remainder of the soft tissues are relatively symmetric. Other: none. IMPRESSION: Postsurgical changes of the thyroid gland No evidence for lymphadenopathy or recurrent mass within th e visualized. [facility], , 02/24/2025 4:06 PM
== END | disposition home or self-care (01) ==
LOC: RADCTMAIN 11:11
PROVIDERS: ATTEND Family Medicine
DX: C73 Malignant neoplasm of thyroid gland (principal); Z98.890 Other specified postprocedural states
CPT/HCPCS: 70491; Q9967